=== PATIENT | female | born 2000 | race Two or more races ===

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

== ENCOUNTER 2019-01-11 22:26 | Emergency (ER) | payer MEDICAID ==
[~2019-01-11] VITALS: Ht 162.6 cm; Wt 77.1 kg
[2019-01-12 01:42] VITALS: BP 119/53
[2019-01-12] MEDS ORDERED: methylPREDNISolone SOD SUCC 125 MG/2 ML VL IM ONE (01:45)
[2019-01-12] MEDS ORDERED: cefTRIAXone SOD 1,000 MG VL IM ONE (01:45)
[2019-01-12] MEDS ORDERED: ACETAMINOPHEN/CODEINE#3 (300/30mg) TAB PO ONE (01:45)
== END 2019-01-12 02:32 | disposition home or self-care (01) ==
LOC: ER 22:29
DX: J06.9 Acute upper respiratory infection, unspecified (principal)
CPT/HCPCS: 99283; J0696; J2930

== ENCOUNTER 2019-06-12 04:53 | Emergency (ER) | payer MEDICAID ==
[~2019-06-12] VITALS: Ht 162.6 cm; Wt 80.7 kg
[2019-06-12 05:20] VITALS: BP 130/80
== END 2019-06-12 07:02 | disposition home or self-care (01) ==
LOC: ER 04:53
DX: J06.9 Acute upper respiratory infection, unspecified (principal); R11.0 Nausea; R19.7 Diarrhea, unspecified; R42 Dizziness and giddiness; Z90.89 Acquired absence of other organs

== ENCOUNTER 2020-06-04 12:52 | Emergency (ER) | payer MEDICAID ==
[~2020-06-04] VITALS: Ht 165.1 cm; Wt 77.1 kg
[2020-06-04 13:38] VITALS: BP 112/79
== END 2020-06-04 16:11 | disposition left against medical advice (07) ==
LOC: ER 12:52
DX: R50.9 Fever, unspecified (principal); M79.10 Myalgia, unspecified site; R53.83 Other fatigue; Z20.828 Contact with and (suspected) exposure to other viral communicable diseases; Z53.21 Procedure and treatment not carried out due to patient leaving prior to being seen by health care provider
CPT/HCPCS: 36415; 87426